=== PATIENT | male | born 1975 | race Asian ===

== ENCOUNTER 2019-03-22 17:42 | Observation (INO) | payer BC, SELFPAY ==
[2019-03-22 17:44] VITALS: BP 103/76; PULSE 88; RESP 16; TEMP 36.6; O2SAT 96
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
[2019-03-22] MEDS: Ibuprofen 600 MG TAB PO (18:10)
[2019-03-22] MEDS: Acetaminophen 500 MG TAB 1000 MG PO (18:10)
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
--- NOTE | 2019-03-22 19:18 | DI.CT_ITS ---
SYMPTOM/DIAGNOSIS: TRAUMA, RIB FRACTURES. CT CHEST: There is a right clavicle fracture. There are multiple right rib fractures. There is a moderate size right pneumothorax and air outside the chest wall. There are increased densities seen in the posterior right lung base consistent with contusion. No left rib fractures are seen. The left lung is clear. The heart and great vessels appear intact. There is a small right hemothorax. The spine and sternum appear intact. The liver, spleen, gallbladder and upper portion of the kidneys appear intact. IMPRESSION: Multiple right rib fractures, moderate pneumothorax and right basilar pulmonary contusion as well as small hemothorax.
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
[2019-03-22 19:28] VITALS: BP 134/82; PULSE 88; RESP 18; O2SAT 95
[2019-03-22] MEDS: Omnipaque 350 MG/ML 100 ML BTL IJ (19:59)
--- NOTE | 2019-03-22 20:04 | NUR.NOTE ---
Nursing Note: Pt was offered Morphine for pain but declined at this time.
[2019-03-22 20:05] VITALS: BP 125/74; PULSE 80; RESP 18; O2SAT 100
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
[2019-03-22 20:36] VITALS: BP 124/80; PULSE 79; RESP 18; TEMP 36.4; O2SAT 100
[2019-03-22 21:22] VITALS: BP 148/93; PULSE 71; RESP 16; TEMP 37.1; O2SAT 98
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
[2019-03-22] MEDS: Normal Saline Flush 10 ML SYR IVP (22:43)
[2019-03-22 23:29] VITALS: BP 138/84; PULSE 74; RESP 18; TEMP 37.3; O2SAT 98
[2019-03-23] VITALS (9 sets, daily range): BP systolic 131–147; BP diastolic 68–91; PULSE 68–74; RESP 16–20; TEMP 36.7–37.2; O2SAT 96–100
[2019-03-23] MEDS: Normal Saline Flush 10 ML SYR IVP ×5 (03:58→20:09)
[2019-03-23] MEDS: Ketorolac 30 MG/ML VIAL IVP ×3 (03:58→20:01)
[2019-03-23 07:23] LABS: Abs Immature Grans 0.02 k/cumm (0.0-0.09); Absolute Basophil Count 0.02 k/cumm (0.0-0.2); Absolute Eosinophil Count 0.08 k/cumm (0.0-0.7); Absolute Lymphocyte Count 1.62 k/cumm (1.2-3.4); Absolute Monocyte Count 0.72 k/cumm (0.11-0.7); Absolute Neutrophil Count 6.44 k/cumm (1.2-6.7); Basophils % 0.2; Eosinophils % 0.9; HCT 39.1 % (40.0-50.0); HGB 12.8 g/dL (13.5-17.5); Immature Grans % 0.2; Lymphocytes % 18.2; Mean Corp. HGB Concentration 32.7 g/dL (32.0-36.0); Mean Corpuscular Hemoglobin 23.8 pg (27.0-33.0); Mean Corpuscular Volume 72.7 fL (80-95); Mean Platelet Volume 11.1 fL (8.0-11.0); Monocytes % 8.1; Neutrophils % 72.4; RBC 5.38 m/cumm (4.50-6.00)
[2019-03-23 08:04] LABS: Diff Comment RBC Morph Reviewed; Platelet Count 238 x1000/uL (130-400)
[2019-03-23 08:05] LABS: Hypochromasia 1+; Microcytosis 2+; Polychromasia Present
[2019-03-23 08:06] LABS: Basophilic Stippling Present
[2019-03-23] MEDS: Bupivacaine 0.25% Pres-Free 30 ML VIAL (09:27)
[2019-03-23] MEDS: Bupivacaine 0.25% Pres-Free 10 ML VIAL (09:27)
--- NOTE | 2019-03-23 10:28 | DI.RAD_ITS ---
SYMPTOM/DIAGNOSIS: RIGHT PNEUMOTHORAX PA AND LATERAL CHEST: 03/23/19 Comparison is made with 22 March 2019. There has been further increase in size of the previously noted right pneumothorax. A small right hemothorax is again noted. The lungs are suboptimally inflated. There is mild atelectasis at the left lung base. Multiple right rib fractures are again noted. Right clavicle fracture is unchanged in alignment. There is air again noted outside the right chest wall. The heart size remains normal. IMPRESSION: Mild interval increase in size of right pneumothorax.
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
[2019-03-23] MEDS: Acetaminophen 325 MG TAB 650 MG PO (12:13)
[2019-03-23] MEDS: HYDROcodone 5/Acetaminophen 325 TAB PO ×2 (15:18→21:04)
--- NOTE | 2019-03-23 15:57 | PDOC.CMIN ---
Care Management Initial Assess REASON FOR HOSPITALIZATION:: R Clavical Fracture, R Pneumothorax, 6 fractured ribs PAST MEDICAL HISTORY/PAST SURGICAL HISTORY:: No previous illnesses or injuries reported PREVIOUS FUNCTIONAL STATUS/SOCIAL/FAMILY SUPPORTS:: Lives with his and 7 y.o. son in [place], [place]. His elderly in laws just move in and he has been the one doing all of the heavy lifting to support and help them settle in. 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 CURRENT FUNCTIONAL STATUS:: Pain management is an issue and he is trying to cope with that. He is scheduled to be on vacation with his bishop Magana for a week starting tomorrow. The stay [place] at a resort so it would be possible but he wants to talk to his own physician first. ADVANCE DIRECTIVES:: None on file Has patient been provided with information about the portal?: No Did the patient sign up for the portal?: No CODE STATUS:: Full Code INSURANCE COVERAGE / FINANCIAL ISSUES:: BC/BS Other CURRENT HOME/COMMUNITY SERVICES/EQUIPMENT:: None PRIMARY CARE PHYSICIAN:: Out of the area POTENTIAL DISCHARGE NEEDS:: Pain medication, Follow up with his regular PCP PATIENT/FAMILY EDUCATION NEEDS:: Limitations and ways to decrease pain with activity ANTICIPATED BARRIERS TO DISCHARGE:: None identified TRANSPORTATION:: Father is coming to transport him home by car. PLAN:: Manuel will retrurn home today and follow up with his own PCP. Readmission - Within the Past 30 Days Yes or No: N
[2019-03-23] MEDS: Docusate Sodium 100 MG CAP PO (21:04)
[2019-03-24 03:42] VITALS: BP 129/81; PULSE 66; RESP 17; TEMP 36.9; O2SAT 98
[2019-03-24] MEDS: HYDROcodone 5/Acetaminophen 325 TAB PO (03:52)
[2019-03-24] MEDS: Normal Saline Flush 10 ML SYR IVP (03:53)
[2019-03-24] MEDS: Ketorolac 30 MG/ML VIAL IVP (03:53)
--- NOTE | 2019-03-24 06:00 | DI.RAD_ITS ---
SYMPTOM/DIAGNOSIS: RIGHT PNEUMOTHORAX PORTABLE CHEST: 03/24/19 AT 6:43 A.M. Comparison is made with 23 March 2019 There has been no change in size of the previously noted right pneumothorax. Increased densities are again seen in the right upper lobe. There is a stable small right hemothorax. There is a small amount of air remaining outside the chest. IMPRESSION: Stable size of right pneumothorax.
--- NOTE | 2019-03-24 07:01 | DI.VRAD_ITS ---
Addendum created by Malcolm Cooney MD on 03/24/2019 8:35:25 AM EDT Correction: No chest tube is identified Initial report created on 03/24/2019 7:00:55 AM EDT EXAM: XR Chest, 1 View EXAM DATE/TIME: 03/24/2019 6:44 AM CLINICAL HISTORY: 43 years old, male; Other: Right pneumothorax TECHNIQUE: Imaging protocol: XR of the chest, 1 view. COMPARISON: SC XR CHEST 2V PA LATERAL 03/23/2019 10:24 AM FINDINGS: Tubes, catheters and devices: Right chest tube. Lungs: No consolidation. Pleural space: Right pleural fluid, likely representing hemothorax. No appreciable right pneumothorax. Heart/Mediastinum: No cardiomegaly. Bones/joints: Overriding comminuted fracture of the right clavicle. Displaced right rib fractures. Soft tissues: Right lateral chest wall subcutaneous emphysema. No radiopaque foreign body. IMPRESSION: Right chest tube. No appreciable right pneumothorax. Dictated and Authenticated by: Malcolm Cooney MD. Ordering:DANIEL Todd MD
[2019-03-24 07:17] VITALS: BP 131/86; PULSE 66; RESP 18; TEMP 36.7; O2SAT 99
[2019-03-24 08:15] VITALS: O2SAT 99
[2019-03-24 08:38] LABS: Abs Immature Grans 0.01 k/cumm (0.0-0.09); Absolute Basophil Count 0.02 k/cumm (0.0-0.2); Absolute Eosinophil Count 0.13 k/cumm (0.0-0.7); Absolute Lymphocyte Count 1.32 k/cumm (1.2-3.4); Absolute Monocyte Count 0.71 k/cumm (0.11-0.7); Absolute Neutrophil Count 5.96 k/cumm (1.2-6.7); Basophils % 0.2; Eosinophils % 1.6; HCT 36.9 % (40.0-50.0); HGB 12.4 g/dL (13.5-17.5); Immature Grans % 0.1; Lymphocytes % 16.2; Mean Corp. HGB Concentration 33.6 g/dL (32.0-36.0); Mean Corpuscular Hemoglobin 24.8 pg (27.0-33.0); Mean Corpuscular Volume 73.7 fL (80-95); Mean Platelet Volume 11.4 fL (8.0-11.0); Monocytes % 8.7; Neutrophils % 73.2; Platelet Count 204 x1000/uL (130-400); RBC 5.01 m/cumm (4.50-6.00); White Blood Cell Count 8.15 k/cumm (4.4-10.8)
[2019-03-24] MEDS: Docusate Sodium 100 MG CAP PO (08:56)
--- NOTE | 2019-03-24 08:56 | W.PM.PROGNOT ---
Date of Service Date of service: 03/24/19 Time of Service: 08:56 Assessment and Plan (1) Right pulmonary contusion: Current visit: Yes Status: Acute Qualifiers: Encounter type: initial encounter Qualified Code(s): S27.321A - Contusion of lung, unilateral, initial encounter (2) Multiple rib fractures involving four or more ribs: Current visit: Yes Status: Acute (3) Pneumothorax on right: Current visit: Yes Status: Acute He is clinically stable and safe for discharge as long as pain is controlled. Will switch from hydrocodone to oxycodone. Patient advised to take ibuprofen along with the narcotics. His CXR today looks good with stable or smaller pneumo Patient advised to follow up with his PCP this Monday or Monday. Can consider referral to orthopedics regarding his clavicle fracture. May need PT when more mobile. Should have follow up CXR in the next few days. Subjective Interval history since last seen: Sore today, still using IV narcotics No new complaints Has not had BM, now on stool softener Tolerating PO Exam Narrative Exam Narrative: Alert, appears well Bilateral breath sounds present Some dependent bruising present on right flank Objective Objective Clinical Data: Vital Signs Temperature 98.4 F 03/24/19 03:42 Temperature Source Tympanic 03/24/19 03:42 Pulse 66 03/24/19 03:42 Pulse Rhythm Regular 03/23/19 19:23 Respiratory Rate 17 03/24/19 03:42 Respiratory Effort 03/23/19 19:23 Respiratory Depth Shallow 03/23/19 19:23 Respiratory Pattern Irregular 03/23/19 19:23 Blood Pressure 129/81 03/24/19 03:42 Blood Pressure Position Sitting 03/22/19 17:44 Pulse Oximetry 98 03/24/19 03:42 Oxygen Delivery Method Nasal Cannula 03/24/19 03:42 Oxygen Flow Rate 2 03/24/19 03:42 Pain Level 6 03/24/19 04:53 Comment 03/23/19 12:19 Intake & Output 03/23/19 03/23/19 03/24/19 11:59 23:59 11:59 Intake Total 600 / 950 350 / 950 560 / 560 Balance 600 / 950 350 / 950 560 / 560 Intake: IV 50 / 50 10 / 10 Oral 600 / 900 300 / 900 550 / 550 Other: Urine Color Yellow Urine Appearance Clear Urine Odor Normal Comment pt voided in toilet; concentrated in appearance Voiding Methods Toilet Laboratory Results WBC 8.90 k/cumm (4.4-10.8) 03/23/19 07:08 RBC 5.38 m/cumm (4.50-6.00) 03/23/19 07:08 Hgb 12.8 g/dL (13.5-17.5) L 03/23/19 07:08 Hct 39.1 % (40.0-50.0) L 03/23/19 07:08 MCV 72.7 fL (80-95) L 03/23/19 07:08 MCH 23.8 pg (27.0-33.0) L 03/23/19 07:08 MCHC 32.7 g/dL (32.0-36.0) 03/23/19 07:08 RDW 13.0 % (11.8-14.1) 03/23/19 07:08 Plt Count 238 x1000/uL (130-400) 03/23/19 07:08 MPV 11.1 fL (8.0-11.0) H 03/23/19 07:08 Immature Gran % 0.2 03/23/19 07:08 Neutrophils % 72.4 03/23/19 07:08 Lymphocytes % 18.2 03/23/19 07:08 Monocytes % 8.1 03/23/19 07:08 Eosinophils % 0.9 03/23/19 07:08 Basophils % 0.2 03/23/19 07:08 Absolute Neutrophils 6.44 k/cumm (1.2-6.7) 03/23/19 07:08 Absolute Lymphocytes 1.62 k/cumm (1.2-3.4) 03/23/19 07:08 Absolute Monocytes 0.72 k/cumm (0.11-0.7) H 03/23/19 07:08 Absolute Eosinophils 0.08 k/cumm (0.0-0.7) 03/23/19 07:08 Absolute Basophils 0.02 k/cumm (0.0-0.2) 03/23/19 07:08 Differential Comment Rbc morph reviewed 03/23/19 07:08 RBC Morphology See below 03/23/19 07:08 Polychromasia Present 03/23/19 07:08 Hypochromasia 1+ 03/23/19 07:08 Basophilic Stippling Present 03/23/19 07:08 Microcytosis 2+ 03/23/19 07:08
--- NOTE | 2019-03-24 09:00 | W.PM.DS.N ---
Date of service: 03/24/19 Time of Service: 09:00 DS: Diagnosis Discharge Diagnosis (1) Right pulmonary contusion: Status: Acute (2) Multiple rib fractures involving four or more ribs: Status: Acute (3) Pneumothorax on right: Status: Acute Discharge Plan Disposition Patient Disposition: HOME Condition: Stable Discharge Details Chief Complaint: Trauma Clinical Impression: Pneumothorax on right, Right rib fracture Reason For Visit: RIGHT CLAVICAL FRACTURE, RIGHT PNEUMOTHORAX Admit Date/Time: 03/22/19 19:52 Admit Provider: Peyton Cespedes Attending Provider: Peyton Cespedes Primary Care Provider: Joann,Local ED Provider: Gallo Adams Hospital Course Hospital Course: The patient had a stable hospital course. His vitals were normal with good saturations on room air. The main issue was pain control. An ES block was attempted with minimal relief. On the day of discharge he had good bilateral breath sounds and no new complaints. Home Meds and New Rx's Prescriptions: New ibuprofen [IBU] 800 mg Tablet 800 mg PO TID PRN PRNQty: 30 RF: 1 oxycodone 5 mg Tablet 10 mg PO Q4H PRN PRNQty: 40 RF: 0 Discharge Instructions Additional Instructions: Use daily stool softener while on narcotics and can use milk of magnesia or mag citrate as needed for constipation. Continue the incentive spirometer Do not drive while taking narcotics and if arm cannot safely be used Wear the sling and use ice for comfort Activity:: Activity as Tolerated Equipment/Supplies:: No Equipment Needed Diet:: As Tolerated Discharge Orders Discharge Orders: Discharge Order (Routine); Ordered 03/24/19 Ordered By: Peyton Cespedes DS: Data Vitals/I&O Vitals and I&O: Vital Signs Temperature 98.4 F 03/24/19 03:42 Temperature Source Tympanic 03/24/19 03:42 Pulse 66 03/24/19 03:42 Pulse Rhythm Regular 03/23/19 19:23 Respiratory Rate 17 03/24/19 03:42 Respiratory Effort 03/23/19 19:23 Respiratory Depth Shallow 03/23/19 19:23 Respiratory Pattern Irregular 03/23/19 19:23 Blood Pressure 129/81 03/24/19 03:42 Blood Pressure Position Sitting 03/22/19 17:44 Pulse Oximetry 98 03/24/19 03:42 Oxygen Delivery Method Nasal Cannula 03/24/19 03:42 Oxygen Flow Rate 2 03/24/19 03:42 Pain Level 6 03/24/19 04:53 Comment 03/23/19 12:19 Intake & Output 03/23/19 03/23/19 03/24/19 11:59 23:59 11:59 Intake Total 600 / 950 350 / 950 560 / 560 Balance 600 / 950 350 / 950 560 / 560 Intake: IV 50 / 50 10 / 10 Oral 600 / 900 300 / 900 550 / 550 Other: Urine Color Yellow Urine Appearance Clear Urine Odor Normal Comment pt voided in toilet; concentrated in appearance Voiding Methods Toilet Labs on day of discharge: Labs from last 24 hours 03/24/19 08:20 WBC Pending RBC Pending Hgb Pending Hct Pending MCV Pending MCH Pending MCHC Pending RDW Pending Plt Count Pending MPV Pending Immature Gran % Pending Neutrophils % Pending Lymphocytes % Pending Monocytes % Pending Eosinophils % Pending Basophils % Pending Absolute Neutrophils Pending Absolute Lymphocytes Pending Absolute Monocytes Pending Absolute Eosinophils Pending Absolute Basophils Pending PFSH Medical History Right pulmonary contusion (Acute) Multiple rib fractures involving four or more ribs (Acute) Pneumothorax on right (Acute) Social History Smoking/Tobacco Use Status: Unknown Alcohol Intake: current Alcohol Intake frequency: 0-2 drinks per day Alcohol type: beer Drug use: Daily Substance use type: marijuana Do you feel safe at home: Yes Do you feel safe in your relationship?: Yes 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
[2019-03-24 09:11] LABS: Diff Comment RBC Morph Reviewed; Microcytosis 2+
[2019-03-24 09:12] LABS: Poikilocytes 1+
[2019-03-24] MEDS: Acetaminophen 325 MG TAB 650 MG PO ×2 (09:37→14:10)
[2019-03-24] MEDS: oxyCODONE 5 MG TAB PO ×2 (09:37→14:11)
[2019-03-24 12:25] VITALS: BP 171/105; PULSE 63; RESP 18; TEMP 37; O2SAT 100
[2019-03-24] MEDS: Ibuprofen 800 MG TAB PO (12:34)
[2019-03-24 13:05] VITALS: BP 139/91; PULSE 97
--- NOTE | 2019-03-24 16:45 | INITIAL_ITS ---
Care Management Initial Assess REASON FOR HOSPITALIZATION:: R Clavical Fracture, R Pneumothorax, 6 fractured ribs PAST MEDICAL HISTORY/PAST SURGICAL HISTORY:: No previous illnesses or injuries reported PREVIOUS FUNCTIONAL STATUS/SOCIAL/FAMILY SUPPORTS:: Lives with his and 7 y.o. son in [place], [place]. His elderly in laws just move in and he has been the one doing all of the heavy lifting to support and help them settle in. 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 CURRENT FUNCTIONAL STATUS:: Pain management is an issue and he is trying to cope with that. He is scheduled to be on vacation with his bishop Magana for a week starting tomorrow. The stay is at a resort so it would be possible but he wants to talk to his own physician first. ADVANCE DIRECTIVES:: None on file Has patient been provided with information about the portal?: No Did the patient sign up for the portal?: No CODE STATUS:: Full Code INSURANCE COVERAGE / FINANCIAL ISSUES:: BC/BS Other CURRENT HOME/COMMUNITY SERVICES/EQUIPMENT:: None PRIMARY CARE PHYSICIAN:: Out of the area POTENTIAL DISCHARGE NEEDS:: Pain medication, Follow up with his regular PCP PATIENT/FAMILY EDUCATION NEEDS:: Limitations and ways to decrease pain with activity ANTICIPATED BARRIERS TO DISCHARGE:: None identified TRANSPORTATION:: Father is coming to transport him home by car. PLAN:: Manuel will retrurn home today and follow up with his own PCP. Readmission - Within the Past 30 Days Yes or No: N
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
== END 2019-03-24 15:04 | disposition home or self-care (01) ==
LOC: ER 20:43 → MS 03-23 11:14
PROVIDERS: Admitting Provider Surgery; Emergency Provider Emergency Medicine; Visit Provider Surgery
DX: S27.0XXA Traumatic pneumothorax, initial encounter (principal); S22.41XA Multiple fractures of ribs, right side, initial encounter for closed fracture; S42.021A Displaced fracture of shaft of right clavicle, initial encounter for closed fracture; S27.321A Contusion of lung, unilateral, initial encounter; R07.89 Other chest pain; V19.88XA Pedal cyclist (driver) (passenger) injured in other specified transport accidents, initial encounter; Y93.55 Activity, bike riding; I10 Essential (primary) hypertension
CPT/HCPCS: 36415; 76942; 99223; 99231; 99239; 99285; 71045; 71046; 71260; 73030; 85025; 99284; G0378; J1885; J3490